=== PATIENT | female | born 1930 | race Caucasian/White ===

== ENCOUNTER 2017-10-11 12:29 | Emergency (ER) | payer MEDICARE ==
[~2017-10-11] VITALS: Ht 154.9 cm; Wt 72.0 kg
[~2017-10-11 12:29] MED LIST: ASPI81 PO; CALTTAB2 PO; METO50TA PO; NIFE1TAB85 PO; POTA75TA2 PO; PRIL20TA2 PO; XANA0.5T2 PO; ZOCO40TA PO
[2017-10-11] MEDS ORDERED: SODIUM CHLOR 0.9% 1000 ML INJ 1,000 ML IV ONE (12:40)
[2017-10-11] MEDS ORDERED: MECLIZINE HCL 25 MG TAB PO ONE (12:45)
[2017-10-11] MEDS ORDERED: SODIUM CHLORIDE 0.9% FLUSH 10 ML FLUSH IVF PRN (12:45)
[2017-10-11 12:48] VITALS: BP_SYST 171; BP_SYST 172; BP_SYST 184; BP_DIAS 71; BP_DIAS 77; BP_DIAS 83; RESP 14; RESP 20; RESP 58; O2SAT 95
[2017-10-11 13:06] LABS: AUTOMATED NEUTROPHIL # 6.4 TH/MM3 (1.8-7.7); BASOPHIL # 0.1 TH/MM3 (0-0.2); BASOPHIL % 0.7 % (0.0-2.0); EOSINOPHIL # 0.1 TH/MM3 (0-0.4); EOSINOPHIL % 0.6 % (0.0-4.0); HEMATOCRIT 40.1 % (35.0-46.0); LYMPHOCYTE # 1.3 TH/MM3 (1.0-4.8); MEAN CELL VOLUME 91.5 FL (80.0-100.0); MEAN CORPUSCULAR HEMOGLOBIN 31.9 PG (27.0-34.0); MEAN CORPUSCULAR HGB CONC 34.8 % (32.0-36.0); MEAN PLATELET VOLUME 7.9 FL (7.0-11.0); MONO % 6.8 % (0.0-8.0); MONOCYTE # 0.6 TH/MM3 (0-0.9); NEUT % 75.9 % (16.0-70.0); PLATELET COUNT 275 TH/MM3 (150-450); RED BLOOD COUNT 4.38 MIL/MM3 (4.00-5.30); RED CELL DISTRIBUTION WIDTH 13.2 % (11.6-17.2); WHITE BLOOD COUNT 8.4 TH/MM3 (4.0-11.0)
[2017-10-11] MEDS ORDERED: NIFE1TAB85 PO (13:09)
[2017-10-11] MEDS ORDERED: POTA-255 PO (13:09)
[2017-10-11] MEDS ORDERED: ASPI81TA16 PO (13:09)
[2017-10-11] MEDS ORDERED: ALPR.25 PO (13:09)
[2017-10-11] MEDS ORDERED: METO25TA3 PO (13:09)
[2017-10-11] MEDS ORDERED: ZOCO40TA PO (13:09)
--- NOTE | 2017-10-11 13:15 | RADRPT ---
EXAM DATE/TIME: 10/11/2017 13:08 [facility] COMPARISON: No previous studies available for comparison. INDICATIONS : Dizziness. RADIATION DOSE: 36.71 CTDIvol (mGy) MEDICAL HISTORY : Cardiovascular disease. Hypertension. SURGICAL HISTORY : None. ENCOUNTER: Initial ACUITY: 1 day PAIN SCALE: 0/10 LOCATION: cranial TECHNIQUE: Multiple contiguous axial images were obtained of the head. Using automated exposure control and adj ustment of the mA and/or kV according to patient size, radiation dose was kept as low as reasonably a chievable to obtain optimal diagnostic quality images. DICOM format image data is available electro nically for review and comparison. FINDINGS: CEREBRUM: The ventricles are normal for age with mild osteopenia. Chronic small vessel ischemic changes are pre sent. No evidence of midline shift, mass lesion, hemorrhage or acute infarction. No extra-axial flui d collections are seen. POSTERIOR FOSSA: The cerebellum and brainstem are intact. The 4th ventricle is midline. The cerebellopontine angle i s unremarkable. EXTRACRANIAL: The visualized portion of the orbits is intact. SKULL: The calvaria is intact. No evidence of skull fracture. CONCLUSION: Negative noncontrast head CT for age. Rufino Gomez MD on October 11, 2017 at 13:12 Board Certified Radiologist. This report was verified electronically.
--- NOTE | 2017-10-11 13:22 | PD ---
HPI Chief Complaint: Dizziness Time Seen by Provider: 12:32 Travel History International Travel<30 days: No Contact w/Intl Traveler<30days: No Traveled to known affect area: No History of Present Illness HPI The patient is a 87-year-old female who presents to the emergency department for dizziness. The patient states her dizziness started last night, is worse with standing upright, but is still present with positional changes. The patient's dizziness does improve if she lies still in the bed. She describes the dizziness as feeling "off balance", she denies any room spinning/ vertigo quality. She does have a history of similar symptoms in the past and was told that she had "crystals in my head ". The patient denies any nausea, vomiting, palpitations, chest pain, or shortness of breath. Symptoms are mild to moderate worse with positional changes such as standing upright and movement. The patient denies any focal deficits of the upper or lower extremities. She denies weakness or numbness of the upper or lower extremities. The patient's primary physician is Dr. Jesus Cavanaugh. [facility] Past Medical History Arthritis: Yes Asthma: No Autoimmune Disease: No Blood Disorders: No Anxiety: Yes Depression: No Heart Rhythm Problems: No Cancer: No Cardiovascular Problems: Yes (IA, STENTS) High Cholesterol: Yes Chest Pain: Yes Congestive Heart Failure: No COPD: No Cerebrovascular Accident: No Coronary Artery Disease: Yes Diabetes: No Diminished Hearing: No Endocrine: No Gastrointestinal Disorders: Yes (GERD) GERD: Yes Genitourinary: Yes (stress incontinence) Headaches: No Hepatitis: No Hiatal Hernia: No Hypertension: Yes Immune Disorder: No Implanted Vascular Access Dvce: Yes Kidney Stones: No Medical other: Yes (ELEVATED CHOLESTEROL) Musculoskeletal: Yes (ARTHRITIS) Neurologic: Yes (LEG CRAMPS) Psychiatric: Yes (ANXIETY) Reproductive: No Respiratory: No Immunizations Current: No Migraines: No Myocardial Infarction: Yes Renal Failure: No Seizures: No Sleep Apnea: No Thyroid Disease: No Ulcer: No Menopausal: Yes Past Surgical History Abdominal Surgery: Yes (APPENDECTOMY,CHOLECYSTECTOMY) AICD: No Appendectomy: Yes Cardiac Surgery: Yes (STENT PLACEMENT) Cholecystectomy: Yes Coronary Stent: Yes (2001) Ear Surgery: No Endocrine Surgery: No Eye Surgery: Yes (LEFT CATARACT) Genitourinary Surgery: No Gynecologic Surgery: No Joint Replacement: Yes (LEFT KNEE) Oral Surgery: No Pacemaker: No Thoracic Surgery: No Tonsillectomy: Yes Other Surgery: Yes (HEMORRHOIDECTOMY) Social History Alcohol Use: No Tobacco Use: No Substance Use: No Allergies-Medications (Allergen,Severity, Reaction): Coded Allergies: No Known Allergies (Verified Adverse Reaction, Unknown, 10/11/17) Reported Meds & Prescriptions Reported Meds & Active Scripts Active Reported Potassium (Potassium Gluconate) 600 Mg (99 Mg) Tablet 1 Tab PO BID Aspirin Adult Low Strength (Aspirin) 81 Mg Tabdr 81 Mg PO DAILY Zocor (Simvastatin) 40 Mg Tab 40 Mg PO HS Procardia XL (Nifedipine) 30 Mg Tab 30 Mg PO DAILY Metoprolol Tartrate 25 Mg Tab 25 Mg PO BID Xanax (Alprazolam) 0.25 Mg Tab 0.25 Mg PO DAILY PRN Review of Systems Except as stated in HPI: all other systems reviewed are Neg HENT: Positive: Lightheadedness, No: Vertigo Cardiovascular: No: Chest Pain or Discomfort, Palpitations, Irregular Rhythm, Tachycardia, Syncope, Dyspnea on exertion Respiratory: No: Shortness of Breath Gastrointestinal: No: Nausea, Vomiting, Abdominal Pain Musculoskeletal: No: Weakness Neurologic: Positive: Dizziness, Ataxia (feels off balance when walking), No: Syncope, Focal Abnormalities, Change in Mentation, Slurred Speech, Paresthesia, Sensory Disturbance Physical Exam Narrative GENERAL: Awake, alert, pleasant 87-year-old female who appears her stated age and is in no acute respiratory distress. SKIN: Focused skin assessment warm/dry. HEAD: Atraumatic. Normocephalic. EYES: Pupils equal and round. EOMs are intact. Pupils are 3 mm bilateral and reactive. ENT: No nasal bleeding or discharge. Mucous membranes pink and moist. TMs are translucent and EACs are clear. NECK: Trachea midline. No JVD. CARDIOVASCULAR: Regular rate and rhythm. No murmur appreciated. RESPIRATORY: No accessory muscle use. Clear to auscultation. Breath sounds equal bilaterally. GASTROINTESTINAL: Abdomen soft, non-tender, nondistended. MUSCULOSKELETAL: No obvious deformities. No clubbing. No cyanosis. No edema. NEUROLOGICAL: Awake and alert. No obvious cranial nerve deficits. Motor grossly within normal limits. Normal speech. Finger to nose is normal. Heel-to -morejon is normal. No drift of the upper or lower extremities. Sensation is symmetric bilaterally on the face, arms, and legs. NIHSS 0. PSYCHIATRIC: Appropriate mood and affect; insight and judgment normal. Data Data Last Documented VS Vital Signs Date Time Temp Pulse Resp B/P (MAP) Pulse Ox O2 Delivery O2 Flow Rate FiO2 10/11/17 12:48 66 58 184/83 (116) 66 14 171/71 (104) 72 20 172/77 (108) 10/11/17 12:48 95 Room Air Orders Orders Electrocardiogram (10/11/17 12:40) Complete Blood Count With Diff (10/11/17 12:40) Comprehensive Metabolic Panel (10/11/17 12:40) Magnesium (Mg) (10/11/17 12:40) Ct Brain W/O Iv Contrast(Rout) (10/11/17 12:40) Ecg Monitoring (10/11/17 12:40) Iv Access Insert/Monitor (10/11/17 12:40) Oximetry (10/11/17 12:40) Meclizine (Antivert) (10/11/17 12:45) Sodium Chloride 0.9% Flush (Ns Flush) (10/11/17 12:45) Sodium Chlor 0.9% 1000 Ml Inj (Ns 1000 M (10/11/17 12:40) Orthostatic Vital Signs (10/11/17 12:40) Mri Brain W/O Contrast (10/11/17 ) Ed Discharge Order (10/11/17 15:26) Labs Laboratory Tests Test 10/11/17 12:52 White Blood Count 8.4 TH/MM3 Red Blood Count 4.38 MIL/MM3 Hemoglobin 14.0 GM/DL Hematocrit 40.1 % Mean Corpuscular Volume 91.5 FL Mean Corpuscular Hemoglobin 31.9 PG Mean Corpuscular Hemoglobin Concent 34.8 % Red Cell Distribution Width 13.2 % Platelet Count 275 TH/MM3 Mean Platelet Volume 7.9 FL Neutrophils (%) (Auto) 75.9 % Lymphocytes (%) (Auto) 16.0 % Monocytes (%) (Auto) 6.8 % Eosinophils (%) (Auto) 0.6 % Basophils (%) (Auto) 0.7 % Neutrophils # (Auto) 6.4 TH/MM3 Lymphocytes # (Auto) 1.3 TH/MM3 Monocytes # (Auto) 0.6 TH/MM3 Eosinophils # (Auto) 0.1 TH/MM3 Basophils # (Auto) 0.1 TH/MM3 CBC Comment DIFF FINAL Differential Comment Blood Urea Nitrogen 16 MG/DL Creatinine 0.86 MG/DL Random Glucose 119 MG/DL Total Protein 7.2 GM/DL Albumin 4.0 GM/DL Calcium Level 8.8 MG/DL Magnesium Level 2.4 MG/DL Alkaline Phosphatase 68 U/L Aspartate Amino Transf (AST/SGOT) 17 U/L Alanine Aminotransferase (ALT/SGPT) 20 U/L Total Bilirubin 0.6 MG/DL Sodium Level 144 MEQ/L Potassium Level 3.9 MEQ/L Chloride Level 110 MEQ/L Carbon Dioxide Level 25.9 MEQ/L Anion Gap 8 MEQ/L Estimat Glomerular Filtration Rate 62 ML/MIN [facility] Medical Decision Making Medical Screen Exam Complete: Yes Emergency Medical Condition: Yes Medical Record Reviewed: Yes Interpretation(s) EKG reveals sinus rhythm with sinus arrhythmia. Inverted T-wave noted in lead 3 and aVF. Laboratory Tests Test 10/11/17 12:52 White Blood Count 8.4 TH/MM3 Red Blood Count 4.38 MIL/MM3 Hemoglobin 14.0 GM/DL Hematocrit 40.1 % Mean Corpuscular Volume 91.5 FL Mean Corpuscular Hemoglobin 31.9 PG Mean Corpuscular Hemoglobin Concent 34.8 % Red Cell Distribution Width 13.2 % Platelet Count 275 TH/MM3 Mean Platelet Volume 7.9 FL Neutrophils (%) (Auto) 75.9 % Lymphocytes (%) (Auto) 16.0 % Monocytes (%) (Auto) 6.8 % Eosinophils (%) (Auto) 0.6 % Basophils (%) (Auto) 0.7 % Neutrophils # (Auto) 6.4 TH/MM3 Lymphocytes # (Auto) 1.3 TH/MM3 Monocytes # (Auto) 0.6 TH/MM3 Eosinophils # (Auto) 0.1 TH/MM3 Basophils # (Auto) 0.1 TH/MM3 CBC Comment DIFF FINAL Differential Comment Blood Urea Nitrogen 16 MG/DL Creatinine 0.86 MG/DL Random Glucose 119 MG/DL Total Protein 7.2 GM/DL Albumin 4.0 GM/DL Calcium Level 8.8 MG/DL Magnesium Level 2.4 MG/DL Alkaline Phosphatase 68 U/L Aspartate Amino Transf (AST/SGOT) 17 U/L Alanine Aminotransferase (ALT/SGPT) 20 U/L Total Bilirubin 0.6 MG/DL Sodium Level 144 MEQ/L Potassium Level 3.9 MEQ/L Chloride Level 110 MEQ/L Carbon Dioxide Level 25.9 MEQ/L Anion Gap 8 MEQ/L Estimat Glomerular Filtration Rate 62 ML/MIN Last Impressions Head CT 10/11/17 1240 Signed Impressions: Service Date/Time: Wednesday, October 11, 2017 13:08 - CONCLUSION: Negative noncontrast head CT for age. Rufino Gomez MD Brain MRI 10/11/17 0000 Signed Impressions: Service Date/Time: Wednesday, October 11, 2017 13:49 - CONCLUSION: 1. 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 2. No acute cortical infarction identified. 3. Scattered areas of increased T2 signal white matter most with moderate microvascular ischemic demyelinative change. Ashish Caldera MD Differential Diagnosis Differential diagnosis includes labyrinthitis, Mnire's disease, benign positional vertigo, TIA, CVA, cerebellar infarct, intracranial hemorrhage, hyponatremia. Narrative Course IV was established, labs are drawn and sent, and the patient was placed on cardiac telemetry monitoring and continuous pulse oximetry monitoring. EKG was ordered and interpreted. Orthostatic vital signs were obtained. CT the brain was ordered to rule out intracranial hemorrhage. MRI was ordered to rule out cerebellar infarct. CT the brain is unremarkable. Sodium is within normal limits. Laboratory evaluation is unremarkable. CT the brain reveals chronic changes. MRI reveals old infarct in the cerebellum, no acute infarct. I had a discussion with the patient regarding 23 hour observation versus outpatient follow-up, the patient would prefer to be discharged home, she has a cat at home to take care of. She will be provided a copy of her MRI results and lab results at discharge. She is advised to follow-up with her primary physician, Dr. Cavanaugh, and return if symptoms worsen or progress. Diagnosis Primary Impression: Dizziness Patient Instructions: General Instructions Additional Instructions: Please provide a patient a copy of her MRI results, CT results, and lab results at discharge. Meclizine as directed. Follow-up with Dr. Cavanaugh. Return if symptoms worsen or progress. Med/Other Pt SpecificInfo: Prescription(s) given Scripts Meclizine (Meclizine) 25 Mg Tab 25 MG PO TID Y for VERTIGO, #10 TAB 0 Refills Prov: Gavino Beckman MD 10/11/17 Disposition: 01 DISCHARGE HOME Condition: Stable Gavino Beckman MD Oct 11, 2017 13:22
[2017-10-11 13:24] LABS: ALT (GPT) 20 U/L (10-53); AST (GOT) 17 U/L (15-37); BICARBONATE 25.9 MEQ/L (21.0-32.0); BLOOD UREA NITROGEN 16 MG/DL (7-18); CALCIUM 8.8 MG/DL (8.5-10.1); CHLORIDE 110 MEQ/L (98-107); CREATININE 0.86 MG/DL (0.50-1.00); GLOMERULAR FILTRATION RATE 62 ML/MIN (>89); GLUCOSE,RANDOM 119 MG/DL (74-106); MAGNESIUM 2.4 MG/DL (1.5-2.5); SODIUM (NA) 144 MEQ/L (136-145)
[2017-10-11 13:27] LABS: ALKALINE PHOSPHATASE 68 U/L (45-117); TOTAL BILIRUBIN ADULT 0.6 MG/DL (0.2-1.0); TOTAL PROTEIN 7.2 GM/DL (6.4-8.2)
--- NOTE | 2017-10-11 14:49 | RADRPT ---
EXAM DATE/TIME: 10/11/2017 13:49 [facility] COMPARISON: No previous studies available for comparison. INDICATIONS : CVA. MEDICAL HISTORY : Gastroesophageal reflux disease. SURGICAL HISTORY : Appendectomy. Cholecystectomy. Total knee replacement, left. ENCOUNTER: Initial ACUITY: 1 day PAIN SCORE: 0/10 LOCATION: Head TECHNIQUE: Multiplanar, multisequence MRI of the brain was performed without contrast. FINDINGS: CEREBRUM: The ventricles are normal for age. No evidence of midline shift, mass lesion, hemorrhage or acute in farction. No extraaxial fluid collections are seen. The pituitary gland and suprasellar cistern are normal in configuration. WHITE MATTER: There are scattered areas of increased T2 signal in the periventricular white matter most consistent with moderate microvascular ischemic demyelinative change. 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 The 4th ventricle is midline. The cerebellopontine angle is unremarkable. The cerebellar tonsils are normal in position. DIFFUSION IMAGING: No focal areas of restricted diffusion are seen. No evidence of acute infarction. EXTRACRANIAL: The visualized portions of the orbits and paranasal sinuses are unremarkable. CONCLUSION: 1. 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 2. No acute cortical infarction identified. 3. Scattered areas of increased T2 signal white matter most with moderate microvascular ischemic demy elinative change. Ashish Caldera MD on October 11, 2017 at 14:40 Board Certified Radiologist. This report was verified electronically.
[2017-10-11] MEDS ORDERED: MECL-62 PO (15:28)
[2017-10-11] MEDS ORDERED: DIAZEPAM 2 MG TAB PO ONE (16:30)
--- NOTE | 2017-10-12 19:30 | EKG ---
Date Performed: 10/11/2017 Time Performed: 13:31:14 PTAGE: 87 years EKG: Sinus rhythm WITH SINUS ARRHYTHMIA MARKED LEFT AXIS DEVIATION PATTERN CONSISTENT WITH PULMONARY DISEASE MODERATE VOLTAGE CRITERIA FOR LVH, CONSIDER NORMAL VARIANT. When compared to previous tracing, early R wave tr ansition is New, but nonspecific. There has been some slight improvement in the nonspecific T Wave ch anges, but essentially there is no significant serial Change. ABNORMAL ECG PREVIOUS TRACING : 10/11/2017 13.30 DOCTOR: Yulia Goel Interpretating Date/Time 10/12/2017 19:29:25
== END 2017-10-11 16:43 | disposition home or self-care (01) ==
LOC: NEPC 12:29
DX: R42 Dizziness and giddiness (principal); R94.31 Abnormal electrocardiogram [ECG] [EKG]; M19.90 Unspecified osteoarthritis, unspecified site; F41.9 Anxiety disorder, unspecified; E78.00 Pure hypercholesterolemia, unspecified; I25.2 Old myocardial infarction; I25.10 Atherosclerotic heart disease of native coronary artery without angina pectoris; K21.9 Gastro-esophageal reflux disease without esophagitis; I10 Essential (primary) hypertension
CPT/HCPCS: 70450; 70551; 80053; 83735; 85025; 93005; 99285; J7030